=== PATIENT | female | born 1955 | race Caucasian/White ===

== ENCOUNTER 2021-06-20 12:01 | Outpatient (REF) | payer BC, SELFPAY ==
--- NOTE | ~2021-06-20 | MM_ITS ---
EXAMINATION: MM SCREENING DIGITAL BREAST TOMOSYNTHESIS, BILATERAL CLINICAL INFORMATION: Screening. Asymptomatic. The lifetime risk of breast cancer based on the Tyrer-Cuzick Model is 7%. COMPARISON: Mammography: 01/25/2018 and prior exams dating back to 10/25/2011. TECHNIQUE: Digital breast tomosynthesis is performed in both the craniocaudal and mediolateral oblique views along with computer-aided detection (CAD). Synthesized 2D images are generated from the tomosynthesis. Additional right CC view is provided. FINDINGS: There are scattered areas of fibroglandular density (ACR BI-RADS breast composition Category b). Parenchymal pattern is similar to prior studies. There is small stable nodular asymmetry posterior central 6:00. Scattered bilateral benign round, rim, and dermal calcifications again seen. No architectural abnormality. The axilla and skin contours are unremarkable. No significant changes. MM/MM tomosynthesis screening BI IMPRESSION: No mammographic evidence of malignancy. ASSESSMENT: BI-RADS 2: Benign RECOMMENDATION: Routine annual mammography screening. This patient's information was entered into a reminder system with a target due date for their next mammogram.
== END 2021-06-20 12:02 | disposition home or self-care (01) ==
LOC: HO.MAMMO 12:01
PROVIDERS: Visit Provider Internal Medicine
DX: Z12.31 Encounter for screening mammogram for malignant neoplasm of breast (principal)
CPT/HCPCS: 77063; 77067

== ENCOUNTER 2022-06-26 11:32 | Outpatient (REF) | payer MEDICARE, SELFPAY ==
--- NOTE | ~2022-06-26 | MM_ITS ---
EXAMINATION: MM SCREENING DIGITAL BREAST TOMOSYNTHESIS, BILATERAL CLINICAL INFORMATION: Screening. Asymptomatic. The lifetime risk of breast cancer based on the Tyrer-Cuzick Model is 7%. COMPARISON: Multiple prior mammography exams, most recent 06/20/2021. TECHNIQUE: Digital breast tomosynthesis is performed in both the craniocaudal and mediolateral oblique views along with computer-aided detection (CAD). Synthesized 2D images are generated from the tomosynthesis. Additional left CC view is provided. FINDINGS: There are scattered areas of fibroglandular density (ACR BI-RADS breast composition Category b). There are multiple scattered benign round, rim, predominantly dermal calcifications again seen. The axilla are unremarkable. The skin contours are smooth. Right breast parenchymal pattern is similar to prior exams. No significant mass or developing density or architectural abnormality. Left breast has a macrolobulated nodule posterior central 6:00 position possibly increased versus waxing and waning cyst. Patient will be recalled to fully characterize. MM/MM tomosynthesis screening BI IMPRESSION: Left: -Macrolobulated nodule posterior central 6:00 questionably increased versus waxing and waning cyst. Right: -No mammographic evidence of malignancy. ASSESSMENT: BI-RADS 0: Incomplete - Need Additional Imaging Evaluation RECOMMENDATION: 1. Additional views of the left breast for margins (spot CC, spot ML). 2. Targeted ultrasound left breast. 3. Radiology department staff will contact the patient for additional imaging. This patient's information was entered into a reminder system with a target due date for their next mammogram.
== END 2022-06-26 11:33 | disposition home or self-care (01) ==
LOC: HO.MAMMO 11:32
PROVIDERS: PCP Family Medicine; Visit Provider Family Medicine
DX: Z12.31 Encounter for screening mammogram for malignant neoplasm of breast (principal)
CPT/HCPCS: 77063; 77067

== ENCOUNTER 2022-07-06 08:19 | Outpatient (REF) | payer MEDICARE, SELFPAY ==
--- NOTE | ~2022-07-06 | MM_ITS ---
EXAMINATION: MM DIAGNOSTIC DIGITAL BREAST TOMOSYNTHESIS, LEFT US DIAGNOSTIC ULTRASOUND BREAST, LEFT CLINICAL INFORMATION: Recall from screening for subtle macrolobulated nodule posterior central 6:00. COMPARISON: Multiple prior mammography exams including most recent 06/26/2022. TECHNIQUE: Digital breast tomosynthesis is performed. 2D images are generated from the tomosynthesis. The following views are obtained: Spot CC, spot ML. Ultrasound left breast is targeted to the inferior breast using grayscale imaging and color Doppler without and with harmonics. FINDINGS: There are scattered areas of fibroglandular density (ACR BI-RADS breast composition Category b). The additional views confirm a small macrolobulated nodule posterior central 6:00 position, under 1 cm. Ultrasound demonstrates an isoechoic macrolobulated nodule 6:00 position approximately 6 cm from nipple measuring approximately 7 x 5 mm. There is no posterior acoustic shadowing. Mild increased through-transmission of sound is present. There is some color flow seen within the nodule. Results are discussed with the patient at time of visit. Ultrasound-guided tissue sampling of the nodule is recommended. Results and recommendation called to medical insurance claims processor (Alejandra Templeton) For Dr. Ibarra on 07/06/2022. MM/MM tomosynthesis added views L IMPRESSION: Nodule under 1 cm central 6:00 left breast. ASSESSMENT: BI-RADS 4: Suspicious RECOMMENDATION: Ultrasound-guided core biopsy left breast nodule. This patient's information was entered into a reminder system with a target due date for their next mammogram.
== END 2022-07-06 08:20 | disposition home or self-care (01) ==
LOC: HO.MAMMO 08:19
PROVIDERS: PCP Family Medicine; Visit Provider Family Medicine
DX: R92.8 Other abnormal and inconclusive findings on diagnostic imaging of breast (principal)
CPT/HCPCS: 76642; 77061; 77065

== ENCOUNTER 2022-07-16 09:54 | Outpatient (REF) | payer MEDICARE, SELFPAY ==
--- NOTE | ~2022-07-16 | MM_ITS ---
EXAMINATION: ULTRASOUND GUIDED CORE BIOPSY BREAST, LEFT POST PROCEDURE DIGITAL MAMMOGRAM, LEFT CLINICAL INFORMATION: Macrolobulated nodule central 6:00 left breast under 1 cm for tissue sampling. TC score 7%. COMPARISON: Mammography 07/06/2022, 06/26/2022, 06/20/2021; left breast ultrasound 07/06/2022.. FINDINGS: Proper informed consent is obtained from the patient after discussion of the procedure, potential risks and complications, and alternatives. Patient was given an opportunity for questions. The patient appeared to understand. The patient consented to the procedure and signed the consent form. GUIDANCE: Ultrasound-guided; aseptic technique. LESION: Subcentimeter macrolobulated nodule central 6:00 left breast. Differential considerations include apocrine metaplasia, fibroadenoma, PASH, papilloma, other. APPROACH: Lateral medial. ANESTHESIA: 10 mL carbonated 1% lidocaine. DERMATOTOMY: Single skin tomasz dermatotomy performed. NEEDLE: 14-gauge Achieve core biopsy device with 13.5-gauge co-axial guide needle. CORES: 5. CLIP: HydroMARK; shape: open coil. POST PROCEDURE UNILATERAL DIGITAL MAMMOGRAM: The post biopsy mammogram is performed in separate room using separate digital mammography equipment from the biopsy procedure. CC and MLO views are obtained. There are scattered areas of fibroglandular density (breast composition category: b). The clip marker is in position, corresponding to the nodule seen on prior mammography. No gross hematoma. The patient tolerated the procedure well. No immediate complications. Home instructions reviewed with the patient. Final pathology results are pending. MM/MM diagnostic mammo unilat LT IMPRESSION: 1. Status post ultrasound-guided core biopsy left breast. 2. Clip placed: HydroMARK; shape: open coil. 3. Pathology pending. An addendum report will be issued.
[2022-07-18] MEDS: Lidocaine HCl 1 % 20 ML VIAL 9 ML SUBCUT (11:54)
[2022-07-18] MEDS: Sodium Bicarbonate 8.4% 50 MEQ/50 ML VIAL SUBCUT (11:55)
== END 2022-07-16 09:55 | disposition home or self-care (01) ==
LOC: HO.MAMMO 09:54
PROVIDERS: PCP Family Medicine; Visit Provider Family Medicine
DX: R92.8 Other abnormal and inconclusive findings on diagnostic imaging of breast (principal)
CPT/HCPCS: 19083; 77062; 77065; 88305; A4648

== ENCOUNTER 2023-11-19 09:17 | Day surgery (SDC) | payer MEDICARE, SELFPAY ==
[2023-11-15 14:13] VITALS: BMI 32.5
[2023-11-19 10:01] VITALS: BP 179/95; RESP 16; TEMP 36.3; O2SAT 94; BMI 32.3
[2023-11-19] MEDS: Lactated Ringers 1,000 ML 80 ML IVCONT (10:15)
--- NOTE | 2023-11-19 10:35 | MHC.SHP ---
Pre-Procedural Eval Section A - 24 Hr Update-Section A only Date of Service: 11/19/23 Section B - Complete if H&P > 30 days Chief Complaint: screening Details of Present Illness: see H&P no changes Relevant Family History (Specify if Yes): No Relevant Social History: None Present Medications: see Short Stay Collaborative assessment Medical History: No relevant PMH History of Previous Operations: No relevant previous surgery Allergies: Allergies Allergy/AdvReac Type Severity Reaction Status Date / Time No Known Allergies Allergy Verified 06/16/21 10:52 Review of Systems Sugical H&P ROS: Negative: Constitution, Cardiovascular, Respiratory, Neurological, Psychiatric, Hem-Onc, Allergic/Immunologic, Gastrointestinal, Genitourinary, Musculoskeletal, Integumentary, Endocrine and Eyes/Ears/Nose/Throat Exam Surgical H&P Exam: Normal: HEENT, Normal: Heart, Normal: Lungs, Normal: Extremities, Normal: Abdomen, Normal: Skin and Normal: Neurological Plan Diagnosis/Plan: Unchanged I have reviewed the history and physical and performed a pertinent physical examination on my patient. No changes have occurred unless specified. Time Spent With Patient Time: Total time managing care of this patient today ____ minutes.
--- NOTE | 2023-11-19 11:26 | P.CONAN_ITS ---
HPI - Anesthesia Eval Consult details Narrative: for colon PMFSH Active Problems Active Problems: All Active Problems Essential hypertension (Acute) Asthma exacerbation (Acute) Cough variant asthma (Acute) Situational anxiety (Acute) Sinus tachycardia by electrocardiogram (Acute) Mild intermittent asthma (Acute) Past Medical History Medical History Diverticulosis HTN (hypertension) Situational anxiety Sinus tachycardia by electrocardiogram Mild intermittent asthma Family History Family history of problems with anesthesia: No Surgical History Surgical History Hx of dilation and curettage Hx of cholecystectomy H/O colonoscopy History of Problems with Anesthesia: No Social History Social History Housing: House Are you a primary care team assistant to a significant other at home: No Do you presently have visiting nurse or other home services: No Patient Tobacco Use Status: Never used Tobacco e-Cigarette/Vaping Use: Never Used Use of substances other than those prescribed or required for medical reasons: No Have you been hit, kicked, punched, or otherwise hurt by someone within the past year? If so, by whom?: No Are you DNR?: No Advance Directives: No Advance Directives Information Provided: Yes Recently lost weight without trying: No service: No Current occupational status: employed Cognitive needs: No Hearing needs: No Vision needs: No Meds Allergies Allergy/AdvReac Type Severity Reaction Status Date / Time No Known Allergies Allergy Verified 06/16/21 10:52 Active Medications: Current Medications Lactated Ringer's (Lr) 1,000 mls @ 80 mls/hr IVCONT .[id number] [facility] Last Admin: 11/19/23 10:15 Dose: 80 mls/hr Home Medications ?Medication ?Instructions ?Recorded ?Confirmed ?Last Taken ?Type albuterol sulfate 2.5 mg/3 mL 2.5 mg inhalation Q4-6H PRN 06/16/21 11/15/23 Unknown History (0.083 %) solution for nebulization Shortness Of Breath Or Wheezing fluticasone 500 mcg-salmeterol 50 1 ea inhalation BID 11/15/23 11/15/23 Unknown History mcg/dose blistr powdr for inhalation (Wixela Inhub) Exam Height,Weight and Vital Signs: Height 5 ft 1 in Weight 77.564 kg Last Vital Signs Temp 97.3 F 11/19/23 10:01 Resp 16 11/19/23 10:01 BP 179/95 H 11/19/23 10:01 Pulse Ox 94 11/19/23 10:01 O2 Del Method Room Air 11/19/23 10:01 Airway Mallampati Class: II TM Dist: >3cm Neck ROM: Full Heart: rrr Lungs: cta Assessment and Plan Assessment Anesthesia Assessment: Anesthesia Plan Discussed Final Anesthetic Review Family History of Problems with Anesthesia: No History of Problems with Anesthesia: No NPO: Yes ASA Class: III Final Preanesthetic Review: No Changes in Pt Med Stat, Meds/Allgs Chart Reviewed, Consent Obtained/Reviewed and Anes Risks/Benef Reviewed Patient Risk: Intermediate Procedure Risk: Low Anesthetic Plan Anesthetic Plan: MAC: Disposition: Standard PACU
[2023-11-19 12:10] VITALS: BP 119/55; PULSE 100; RESP 12; TEMP 36.1; O2SAT 99
[2023-11-19 12:25] VITALS: BP 139/59; PULSE 102; RESP 18; TEMP 36.8; O2SAT 95
--- NOTE | 2023-11-19 12:45 | PC.NURSE ---
small bruise noted to area after IV removal. approx size of nickel. Patient commented that this is common for her. Pressure gauze/tape dressing applied.
--- NOTE | 2023-11-19 13:41 | OP_ITS ---
DATE OF SERVICE: 11/19/2023 SURGEON: John Thurman MD INDICATIONS: Colon cancer screening. PREOPERATIVE DIAGNOSIS: POSTOPERATIVE DIAGNOSIS: PROCEDURE PERFORMED: Colonoscopy to the terminal ileum. ESTIMATED BLOOD LOSS: COMPLICATIONS: ANESTHESIA: Monitored anesthesia care. ASSISTANTS: SPECIMENS: DESCRIPTION OF PROCEDURE: A history and physical was performed. The risks and benefits of the procedure were explained to the patient and informed consent was obtained. The patient was placed in the left lateral decubitus position. A digital rectal exam was performed and was found to be normal. The Olympus pediatric video colonoscope was introduced into the rectum and advanced to the cecum. The cecum was identified by transillumination, palpation, and identification of ileocecal valve. Abdominal wall pressure was used to assist in advancement of the scope. Examination was performed and the scope was removed. She tolerated the procedure well and was returned to recovery area in stable condition. FINDINGS: The terminal ileum was examined and appeared normal. The visualized colonic mucosa was normal. There was a moderate amount of liquid stool coating the mucosa in the right colon and cecum. This was washed and suctioned, but did limit the examination slightly for detection of small polyps. No polyps were identified. There was mild sigmoid diverticulosis. Retroflexed examination showed some moderate-sized internal hemorrhoids. IMPRESSION: Normal colonoscopy. RECOMMENDATIONS: 1. Follow up as needed. 2. Repeat colonoscopy is recommended in 10 years for average-risk individuals. MD JEFERSON Sullivan/HONEY / [phone]
== END 2023-11-19 13:15 | disposition home or self-care (01) ==
PROVIDERS: PCP Family Medicine; Visit Provider Internal Medicine Gastroenterology
PROC: 0DJD8ZZ Inspection of Lower Intestinal Tract, Via Natural or Artificial Opening Endoscopic (ICD-10-PCS; CPT 45378; principal; 2023-11-19 10:50)
DX: Z12.11 Encounter for screening for malignant neoplasm of colon (principal); K57.30 Diverticulosis of large intestine without perforation or abscess without bleeding; K64.8 Other hemorrhoids; I10 Essential (primary) hypertension; J45.20 Mild intermittent asthma, uncomplicated; Z79.51 Long term (current) use of inhaled steroids; Z79.899 Other long term (current) drug therapy; Z90.49 Acquired absence of other specified parts of digestive tract
CPT/HCPCS: G0121; J2704

== ENCOUNTER 2024-12-08 12:01 | Outpatient (REF) | payer MEDICARE, SELFPAY ==
--- OUTSIDE RECORDS SUMMARY | 2023-11-19 06:50 | XMS_ITS ---
Author Organization [facility] Address [address] [place] [id number] Care Team Providers Care Delivery And Mail Sorter Name Role Phone Heath Ibarra Primary Care Provider Unavaila John Alvarado Jr Unavailable [phone] REASON FOR VISIT screening colon Encounters Encounter Location Date Provider Diagnosis [facility] [place] Outpatient [address] [place] [id number] 11/19/2023 John Thurman Jr Colon cancer screening Z12.11 Assessments Encounter Date Diagnosis (ICD Code) Assessment Notes Treatment Notes Treatment Clinical Notes Section Notes 11/19/2023 Colon cancer screening (ICD-10 - Z12.11) Plan Of Treatment No Information Progress Notes * FABIO SILVA MDOB:1955 (69 yo F)Acc No.[id number]:11/19/2023 COLON WITH MAC Patient: Holland IGNACIOKORIDIDIEREN Juliocesar Provider: Savannah Thurman MD :1955 A ge:68 Y S ex:Female Date:11/19/2023 Address:[address] [place], [place] [id number] Pcp:Heath Ibarra Subjective: * Chief Complaints: * 1 . Screening colon. * Medical History: Objective: * Vitals: Assessment: * Assessment: 1. C olon cancer screening - Z12.11 (Primary) Plan: * Treatment: * Procedure Codes: 4 5378 DIAGNOSTIC COLONOSCOPY, 0529F INTRVL 3+YRS PTS CLNSCP DOCD, 0528F RCMND FLW-UP 10 YRS DOCD * * The named appointment provid er may or may not be the originator of this progress note, and it is not deemed complete until electronically signed by the appointment provider. Sign off status: Pending * Provider: Savannah Thurman MD Date: 0 11/19/2023 Generated for Vanessa martin/Katty/[place] on: 0 12/08/2024 04:11 PM EDT
--- OUTSIDE RECORDS SUMMARY | 2024-12-08 16:12 | XMS_ITS | Patient Health Record ---
Author Organization [facility] Address [address] [place] [id number] Care Team Providers Care Kick Press Setter Name Role Phone Heath Ibarra Primary Care Provider John Man Jr Unavailable Allergies No Known Allergies Reason For Referral No Information Medications Medication SIG (Take, Route, Frequency, Duration) Notes Start Date End Date Status Lisinopril 5 MG TAKE 1 TABLET BY ELIAZAR EVERY DAY Oral for 90 Active Montelukast Sodium 10 MG Oral for 90 Active Wixela Inhub 500-50 MCG/ACT INHALE 1 PUF F BY MOUTH 2 TIMES A DAY Inhalation for 90 Active Albuterol Sulfate HFA 108 (90 Base) MCG/ACT Inhalation for 16 Activ e Immunizations Vaccine Route Administration Date Status Comme nts Influenza Unknown 01/22/2023 Administered Social History Tobacco Use: Social History Observation Description Date Details (start date - stop date) Never Smoker NA - NA Tobacco Use/Smoking Question Answer Notes Patient is a nonsmoker Alcohol Screen Question Answer Notes Did you have a drink containing alcohol in the p ast year? No Points 0 Interpretation Negative Problems Problem Type SNOMED Code ICD Code Onset Dates Problem Status W/U Status Risk Notes Problem [id number] Colon cancer screening (Z12.11) Active confirmed Plan Of Treatment Future Test Test Name Order Date COLONOSCOPY 10/07/2023 Insurance Providers Payer Name Payer Address Payer Phone Subscriber Number Group Number Insured Name Patient Relationship to Insured Coverage Start Date Coverage End Date MEDICARE OF [place] [address] [place] [address] [id number] FABIO RAJPUT Self - patient is the insured [employer] ATTN CLAIMS [address] [place] [address] [id number] FABIO RAJPUT Self - patient is the insured Medical (General) History Medical History History ICD Code Asthma Hypertension Colonoscopy 09/01, diverticulosis, ten-ye ar followup Surgical History Surgery Date(Month/Year) D&C 2016 Cholecystectomy 2004 Hospitalization History Reason Date(Month/Year) asthma 2012
--- OUTSIDE RECORDS SUMMARY | 2024-12-08 16:12 | XMS_ITS | Clinical Summary ---
Author Organization [facility] Address [address] [address] Care Team Providers Care Manager Background Name Role Phone Gregoria Noland MD Primary Care Provider [phone] Social History Tobacco Use Types Packs/Day Years Used Date Smoking Tobacco: Never Assessed Comments Unknown Sex and Gender Information Value Date Recorded Sex Assigned at Not on file Legal Sex Female 3:51 PM EDT Gender Identity Not on file Sexual Orientation Not on file Plan of Treatment Health Maintenance Due Date Last Done Comments Breast Cancer Screening 1955 Colorectal Cancer Screening: Annual FOBT 2005 Colorectal Cancer Screening: Colonoscopy 2005 Colorectal Cancer Screening: Sigmoidoscopy 2005 Pneumococcal Vaccine: 50+ Ye ars (1 of 1 - PCV) 2006 Influenza Vaccine (#1) 2024 Hepatitis B Vaccine Aged Out No longe r eligible based on patient's age to complete this topic Insurance [facility] RACHELLE Cole([id number]) [facility] PPO [place]([id number]) Care Teams Manager Background Relationship Specialty Start Date End Date Gregoria Noland MD [facility] [place] [address] PCP - General Internal Medicine 06/27/21
== END 2024-12-08 12:02 | disposition home or self-care (01) ==
LOC: HO.MAMMO 12:01
PROVIDERS: PCP Family Medicine; Visit Provider Family Medicine
DX: Z12.31 Encounter for screening mammogram for malignant neoplasm of breast (principal)
CPT/HCPCS: 77063; 77067

== ENCOUNTER → 2024-12-08 12:15 | Outpatient (BNV) | payer MEDICARE, SELFPAY | PROVIDERS: PCP Family Medicine; Visit Provider Internal Medicine | DX: Z12.31 Encounter for screening mammogram for malignant neoplasm of breast (principal) | CPT/HCPCS: 77063; 77067 ==